=== PATIENT | female | born 1965 | race Caucasian/White ===

== ENCOUNTER 2021-05-15 11:11 | Outpatient (CLI) | payer OTHER, SELFPAY ==
[2021-05-15 12:20] LABS: SARS-CoV-2 RNA PCR Positive (Negative)
== END 2021-05-15 11:12 | disposition home or self-care (01) ==
LOC: CHSLAB 11:16
PROVIDERS: PCP Physician Assistant; Visit Provider Physician Assistant
DX: U07.1 COVID-19 (principal)
CPT/HCPCS: C9803; U0003; U0005

== ENCOUNTER 2021-07-21 15:12 | Outpatient (CLI) | payer OTHER, SELFPAY ==
[2021-07-21 16:33] LABS: SARS-CoV-2 RNA PCR Negative (Negative)
== END 2021-07-21 15:13 | disposition home or self-care (01) ==
LOC: CHSLAB 15:15
PROVIDERS: PCP Physician Assistant; Visit Provider Physician Assistant
DX: Z20.822 Contact with and (suspected) exposure to COVID-19 (principal)
CPT/HCPCS: C9803; U0003; U0005